=== PATIENT | female | born 1995 ===

== ENCOUNTER 2023-02-17 09:19 | Outpatient (AMB) | payer OTHER, SELFPAY ==
--- NOTE | 2023-02-17 09:24 | A.OFFPC_ITS ---
Vital Signs 02/17/23 09:25 Height 5 ft 3 in Weight 155 lb 4 oz BMI 27.5 BP 118/60 Blood Pressure Location Lt brachial Position Sitting Pulse 57 Pulse Source Pulse Oximeter Pulse Oximetry (%) 98 Oxygen Delivery Method Room Air Intake Visit Reasons: [employer] Environmental Permitting Specialist: Not Required per policy Accompanied by: Self / Same As Patient Allergies No Known Allergies Allergy (Verified 02/17/23 09:48) Medication List - Last Reconciled 02/17/23 by TOSHIA Andrews cetirizine (Zyrtec) 10 mg PO DAILY Tobacco use date assessed: 02/17/23 Dental Screening Dental Screen Date: 02/17/23 Did you have a dental visit in the last 12 months?: No Did you have a dental problem in the last 6 months where you did not have access to dental care?: No Was dental information given to patient?: Patient has dentist HPI HPI Comments History of Present Illness Details 27-year-old female new patient presents today for physical exam. Past medical history significant for eczema and seasonal allergies. Patient denies any chest pain, palpitations, shortness of breath and syncope. Patient is unaware when last Tdap vaccine was, patient states she will check with her mother who her transportation project manager was to obtain her previous immunization records. Patient requesting to have complete lab work done in also reports that at 1 point in time she has had a facial rash to bilateral cheeks that felt different than her eczema as well as having fatigue and various joint pains. Complete blood work ordered as well as CRP, ESR, rheumatoid factor an SEVERIANO to further exclude any autoimmune problems. Patient reports previously seen by [facility] but not has not seen them in a few years for Pap smear, referral entered. Eye exam: Recommended every couple years. Last MD was transportation project manager; unknown. PENDING SALE TO [facility] Medical History (Updated 02/17/23 @ 10:07 by TOSHIA Andrews) Facial rash Depression Anxiety History of wrist fracture Family History Mother Burns syndrome Father Heart attack Other Mental health problem Social History (Updated 02/17/23 @ 09:51 by TOSHIA Andrews) Housing: House Alcohol intake: current Alcohol intake frequency: a few times a month Patient Tobacco Use Status: Never used Tobacco Substance Use Type: Marijuana service: No Current occupational status: employed Cognitive needs: No Hearing needs: No Vision needs: Yes Female Reproductive History Menstrual Age of Menarche: 14 Date of last menstrual period: 02/14/23 control method: none Questionnaire PHQ-9 Over the last 2 weeks, how often have you been bothered by any of the following problems? 1. Little interest or pleasure in doing things: not at all 2. Feeling down, depressed, or hopeless: nearly every day 3. Trouble falling or staying asleep, or sleeping too much: not at all 4. Feeling tired or having little energy: not at all 5. Poor appetite or overeating: more than half the days 6. Feeling bad about yourself - or that you are a failure or have let yourself or your family down: more than half the days 7. Trouble concentrating on things, such as reading the newspaper or watching television: several days 8. Moving or speaking so slowly that other people could have noticed. Or the opposite - being so fidgety or restless that you have been moving around a lot more than usual: not at all 9. Thoughts that you would be better off or of hurting yourself in some way: several days Total score: 9 Source: Developed by Drs. Bean Marx, Alva Rob, Josh Charles and colleagues, with an educational ludivina from [employer]. Thrive Questionnaire Date Thrive assessed: 02/17/23 I am a: Patient What is your living situation today?: I have a steady place to live Within the past 12 months, did the food you bought not last and you didn't have the money to get more?: Never true Within the past 12 months, did you worry whether your food would run out before you got money to buy more?: Never true Do you have trouble paying for medicines?: No Do you have trouble getting transportation to medical appointments?: No Do you have trouble paying your heating and electricity bill?: No Do you have trouble taking care of your child, family member or friend?: No Do you have trouble with day-to-day activities such as bathing, preparing meals, shopping, managing finances, etc.?: No Are you currently unemployed and looking for a job?: No Are you interested in more education?: No Please select the resources that you would like help with: None AUDIT C Alcohol Use Questionnaire (AUDIT-C) 1. How often do you have a drink containing alcohol?: Never Total Score: 0 VICKIE-7 AMB Questionnaire VICKIE-7 Date VICKIE - 7 assessed: 02/17/23 Feeling nervous, anxious, or on edge: 1 = Several days Not being able to stop or control worryin = Not at all Worrying too much about different things: 0 = Not at all Trouble relaxin = Not at all Being so restless that it is hard to sit still: 1 = Several days Becoming easily annoyed or irritable: 1 = Several days Feeling afraid as if something awful might happen: 1 = Several days Total VICKIE-7 score (0-4 normal; 5-9 mild; 10-14 moderate; 15-21 severe): 4 Source: Developed by Drs. Bean Marx, Alva Rob, Josh Charles and colleagues, with an educational ludivina from [employer]. Review of Systems Const Denies chills, Denies fatigue, Denies fever(s) and Denies poor appetite Eyes Denies no additional complaints ENT Reports Normal hearing present Card Denies chest pain, Denies syncope, Denies rapid heart rate and Denies dyspnea Resp Denies cough and Denies dyspnea GI Denies change in stool character, Denies constipation, Denies diarrhea, Denies nausea and Denies vomiting Denies urinary frequency, Denies dysuria and Denies urinary urgency Neuro Reports Normal hearing present, Denies confusion and Denies syncope Psych Denies confusion Endo Denies fatigue Physical exam (Primary Care) Vital Signs: Last Vital Signs Pulse 57 02/17/23 09:25 BP 118/60 02/17/23 09:25 Pulse Ox 98 02/17/23 09:25 Oxygen Delivery Method Room Air 02/17/23 09:25 BMI result Body Mass Index 27.5 Tobacco/Smoking Status: Tobacco use Status Tobacco use date assessed 02/17/23 02/17/23 09:27 Patient Tobacco Use Status Never used Tobacco 02/17/23 09:51 PHQ-9: PHQ-9 Score PHQ-9: Total score 9 02/17/23 09:52 Thrive Assessment: Date of Thrive Assessment Date Thrive assessed 02/17/23 02/17/23 09:27 Const General: No confusion Orientation/consciousness: No confusion HENMT Head: Yes normocephalic and Yes atraumatic Ears: external ears normal and TM's normal bilaterally General nose exam: Normal external nose present and Normal nasal mucous membranes and turbinates present Face and sinus: Yes normal facial exam and Yes sinuses nontender Mouth: moist mucous membranes Throat: Yes tonsils normal Eyes Conjunctivae: conjunctivae normal Sclerae: sclerae normal Pupils: Equal, round and reactive pupils present and Pupils normal by confrontation EOM: EOMs intact bilaterally Direct Ophthalmoscopy: normal light reflex Neck Neck: Yes no lymphadenopathy and Yes supple Thyroid: Thyroid normal Chest Chest palpation & inspection: normal inspection of the chest Resp Effort & Inspection: normal respiratory effort Auscultation: clear to auscultation bilaterally, no crackles, no rhonchi and no wheezes Cardio Rate: regular rate Rhythm: regular rhythm Peripheral pulses: radial pulses present and dorsalis pedis present GI Inspection: Yes normal to inspection Palpation (GI): Soft to palpation, nontender and No hepatosplenomegaly present Auscultation: normoactive bowel sounds Skin General skin exam: no rashes or lesions noted Neuro General: No confusion Cranial nerves: Yes Equal, round and reactive pupils present and Yes Normal hearing present Cognition (Neuro): normal cognition Gait exam (Neuro): Normal gait present Motor exam (neuro): 5/5 motor strength present throughout Deep tendon reflexes (DTR's): Right brachioradialis reflex intensity grade: 2+, Left brachioradialis reflex intensity grade: 2+, Right patellar reflex intensity grade: 2+ and Left patellar reflex intensity grade: 2+ Extrem General: No edema Assessment and Plan Assessment & Plan (1) Fatigue: Code(s): R53.83 - Other fatigue Plan: Complete blood work ordered. (2) Vitamin D deficiency: Code(s): E55.9 - Vitamin D deficiency, unspecified Plan: Vitamin-D level ordered, patient reports past history of vitamin-D deficiency. (3) Joint pain: Code(s): M25.50 - Pain in unspecified joint Plan: ESR, CRP, rheumatoid factor and SEVERIANO headed to blood work since patient states she has various joint pains at times and reported a rash to bilateral cheeks months ago that felt different than her eczema to rule out any autoimmune disorders. Plan Keep scheduled follow-up 1 year follow-up sooner. Orders: Orders Comprehensive Met. Panel Today R53.83 - Other fatigue SEVERIANO Reflex Titer and Pattern Today R21 - Rash and other nonspecific skin eruption Rheumatoid Factor Today M25.50 - Pain in unspecified joint Erythrocyte Sedimentation Rate Today M25.50 - Pain in unspecified joint Vitamin D 25-OH Total Today E55.9 - Vitamin D deficiency, unspecified Complete Blood Count Auto Diff Today R53.83 - Other fatigue TSH reflex Free T4 Today R53.83 - Other fatigue CRP High Sensitivity Today M25.50 - Pain in unspecified joint, R53.83 - Other fatigue Referrals [facility] Referral Z12.4 - Encounter for screening for malignant neoplasm of cervix Coding Level of Care Code New Pt Prev Care 18-39yr([id number] Diagnoses Fatigue R53.83 Vitamin D deficiency E55.9 Joint pain M25.50
[2023-02-17 09:25] VITALS: BP 118/60; PULSE 57; O2SAT 98; BMI 27.5
== END 2023-02-17 10:07 | disposition home or self-care (01) ==
PROVIDERS: Visit Provider Nurse Practitioner Family
DX: Z00.00 Encounter for general adult medical examination without abnormal findings (principal); R53.83 Other fatigue; E55.9 Vitamin D deficiency, unspecified; M25.50 Pain in unspecified joint
CPT/HCPCS: 99385

== ENCOUNTER 2023-02-19 07:40 | Outpatient (REF) | payer OTHER, SELFPAY ==
[2023-02-19 10:58] LABS: MANUAL DIFF FLAG NO
[2023-02-19 11:06] LABS: Basophils Percent Auto 0.4 % (0-2); Eosinophils Absolute Auto 0.1 X10*3/uL (0.0-0.4); Eosinophils Percent Auto 1.9 % (0-4); Hematocrit 38.5 % (37.0-47.0); Hemoglobin 13.1 g/dl (12.0-16.0); Imm Gran Abs Auto 0.01 X10*3/uL (0.00-0.03); Imm Gran Pct Auto 0.1 % (0.0-0.4); Lymphocytes Absolute Auto 2.8 X10*3/uL (1.2-4.9); Lymphocytes Percent Auto 41.9 % (20-40); Mean Corpuscular Hemoglobin 31.8 pg (27.0-33.0); Mean Corpuscular Volume 93.4 fL (80.0-98.0); Mean Platelet Volume 10.6 fL (9.4-12.3); Monocytes Absolute Auto 0.5 X10*3/uL (0.1-1.2); Monocytes Percent Auto 7.8 % (2-11); Neutrophils Absolute Auto 3.2 x10*3/uL (2.0-8.3); Neutrophils Percent Auto 47.9 % (45-73); Platelet Count 241 X10*3/uL (160-400); Red Blood Count 4.12 X10*6/uL (4.20-5.50); Red Cell Distribution Width 11.7 % (11.0-16.0); White Blood Count 6.8 X10*3/uL (4.8-10.8)
[2023-02-19 11:29] LABS: Rheumatoid Factor < 13.0 IU/mL (<15.0)
[2023-02-19 11:42] LABS: Alanine Aminotransferase 21 U/L (0-31); Albumin Level 4.4 g/dL (3.5-5.0); Alkaline Phosphatase 61 U/L (39-117); Anion Gap 13 (12-20); Aspartate Amino Transferase 22 U/L (5-31); Bilirubin Total 0.3 mg/dL (0.0-1.0); Blood Urea Nitrogen 13 mg/dL (9-16); Calcium 9.7 mg/dL (8.4-10.2); Carbon Dioxide 26 mmol/L (22-29); Chloride 106 mmol/L (96-108); Estimated Glomerular Filt Rate > 60; Glucose Random 78 mg/dL (60-115); Potassium 3.8 mmol/L (3.3-5.1); Sodium 141 mmol/L (135-145); Total Protein 7.6 g/dL (6.5-8.0)
[2023-02-19 11:46] LABS: Erythrocyte Sedimentation Rate 5 MM/HR (0-20)
[2023-02-19 11:48] LABS: Vitamin D 25-OH Total 65.7 ng/mL (>30)
[2023-02-23 11:35] LABS: Anti Nuclear Antibody Screen NEGATIVE (NEGATIVE)
== END 2023-02-19 07:41 | disposition home or self-care (01) ==
LOC: HO.10HDL 07:40
PROVIDERS: Visit Provider Nurse Practitioner Family
DX: E55.9 Vitamin D deficiency, unspecified (principal); M25.50 Pain in unspecified joint; R21 Rash and other nonspecific skin eruption; R53.83 Other fatigue
CPT/HCPCS: 36415; 80053; 82306; 84443; 85025; 85652; 86038; 86141; 86431

== ENCOUNTER 2023-05-03 08:00 | Outpatient (AMB) | payer OTHER, SELFPAY ==
[2023-05-03 08:05] VITALS: BP 118/72; PULSE 79; TEMP 36.7; O2SAT 99; BMI 27.6
--- NOTE | 2023-05-03 08:05 | AM.OFFWIN_ITS ---
Intake Vital Signs 05/03/23 08:05 Height 5 ft 3 in Weight 156 lb BMI 27.6 BP 118/72 Blood Pressure Location Lt brachial Position Sitting Pulse 79 Pulse Source Pulse Oximeter Temp 98.1 F Temp Source Temporal Artery Scan Pulse Oximetry (%) 99 Intake Visit Reasons: EST/sore throat (masked lobby) Intake Note: pt is here for c/o sore throat Patient Tobacco Use Status: Never used Tobacco Allergies No Known Allergies Allergy (Verified 05/03/23 08:19) Medication List - Last Reconciled 05/03/23 by Jamal Douglas MD cetirizine (Zyrtec) 10 mg PO DAILY Do you need a note to return to daycare/school/sports/work: Yes HPI EST/sore throat (masked lobby) HPI Details Patient presents for a sick visit. Reporting symptoms of sinus congestion, sore throat and difficulty swallowing. Low-grade fever. No family member is sick. No recent travel. Patient reports symptoms of malaise and fatigue. [facility] Medical History (Updated 02/17/23 @ 10:07 by TOSHIA Andrews) Facial rash Depression Anxiety History of wrist fracture Family History Mother Burns syndrome Father Heart attack Other Mental health problem (Updated 02/17/23 @ 09:51 by TOSHIA Andrews) Housing: House Alcohol intake: current Alcohol intake frequency: a few times a month Patient Tobacco Use Status: Never used Tobacco Substance Use Type: Marijuana service: No Current occupational status: employed Cognitive needs: No Hearing needs: No Vision needs: Yes Female Reproductive History Menstrual Age of Menarche: 14 Physical Exam Vital Signs: Last Vital Signs Temp 98.1 F 05/03/23 08:05 Pulse 79 05/03/23 08:05 BP 118/72 05/03/23 08:05 Pulse Ox 99 05/03/23 08:05 BMI result Body Mass Index 27.6 Const General: cooperative and healthy appearing Nutritional Appearance: well nourished Orientation/consciousness: patient oriented x3 Limitations: no limitations HEENT Head: Yes normal to inspection Eyes General: appearance normal, both eyes and all related structures Neck Neck: Yes normal visual inspection Chest Chest palpation & inspection: normal palpation of entire chest wall Resp Effort & Inspection: normal respiratory effort Neuro General: patient oriented x3 Assessment & Plan Assessment & Plan (1) Upper respiratory tract infection: Code(s): J06.9 - Acute upper respiratory infection, unspecified Plan: Antibiotics ordered. Increase fluid intake. Tylenol for aches and pains. If symptoms worsen, follow-up here for a recheck. Coding Level of Care Code Est Pt Level 3 (40083) Diagnoses Upper respiratory tract infection J06.9
== END 2023-05-03 08:26 | disposition home or self-care (01) ==
PROVIDERS: PCP Nurse Practitioner Family; Visit Provider Internal Medicine
DX: J06.9 Acute upper respiratory infection, unspecified (principal); J02.9 Acute pharyngitis, unspecified
CPT/HCPCS: 87880; 99213

== ENCOUNTER 2023-06-23 07:01 | Emergency (ER) | payer OTHER, SELFPAY ==
[2023-06-23 07:10] VITALS: BP 112/79; PULSE 72; RESP 20; TEMP 36.5; O2SAT 98; BMI 28.9
[2023-06-23] MEDS: Ondansetron ODT 4 MG TAB.RAPDIS TRANSLINGU (07:18)
[2023-06-23 07:46] LABS: MANUAL DIFF FLAG NO
[2023-06-23 07:49] LABS: Appearance Urine Clear; Color Urine Yellow; Glucose Urine UA Negative (Negative); Leukocyte Esterase Urine Negative (Negative); Nitrite Urine Negative (Negative); PH >= 9.0 (5.0-9.0); Specific Gravity - Urine 1.025 (1.005-1.025); UMIC TRIGGER UACC YES; Urine Blood Negative (Negative); Urine Ketones Trace mg/dL (Negative); Urine Protein 30 (1+) mg/dL (Neg-Trace)
[2023-06-23 07:50] LABS: UPreg QC Valid YES; Urine Pregnancy NEGATIVE (NEGATIVE)
[2023-06-23 08:01] LABS: Anion Gap 14 (12-20); Blood Urea Nitrogen 13 mg/dL (9-16); Calcium 9.4 mg/dL (8.4-10.2); Carbon Dioxide 22 mmol/L (22-29); Chloride 108 mmol/L (96-108); Creatinine Clr Calc Pharmacy 85.6; Estimated Glomerular Filt Rate > 60; Glucose Random 118 mg/dL (60-115); Potassium 3.7 mmol/L (3.3-5.1); Sodium 140 mmol/L (135-145)
[2023-06-23 08:06] LABS: Bacteria Urine 1+ (None Seen); Hyaline Casts Urine 0-2 /LPF (0-2); RBC Urine 0-2 /HPF (0-2); WBC Urine 0-5 /HPF (0-5)
[2023-06-23 08:14] LABS: Basophils Percent Auto 0.4 % (0-2); Hematocrit 39.5 % (37.0-47.0); Hemoglobin 13.9 g/dl (12.0-16.0); Imm Gran Abs Auto 0.02 X10*3/uL (0.00-0.03); Imm Gran Pct Auto 0.2 % (0.0-0.4); Lymphocytes Absolute Auto 0.9 X10*3/uL (1.2-4.9); Lymphocytes Percent Auto 10.5 % (20-40); Mean Corpuscular HGB Conc 35.2 g/dl (31.0-35.0); Mean Platelet Volume 10.5 fL (9.4-12.3); Monocytes Absolute Auto 0.3 X10*3/uL (0.1-1.2); Neutrophils Absolute Auto 7.1 x10*3/uL (2.0-8.3); Neutrophils Percent Auto 85.9 % (45-73); Platelet Count 221 X10*3/uL (160-400); Red Blood Count 4.34 X10*6/uL (4.20-5.50); White Blood Count 8.2 X10*3/uL (4.8-10.8)
--- NOTE | 2023-06-23 10:13 | ED.NAVMDI ---
HPI - Nausea/Vomiting/Diarrhea General Chief complaint: Nausea/Vomiting/Diarrhea Stated complaint: Vomiting Flu Symptoms Time Seen by Provider: 06/23/23 10:06 Source: patient Mode of arrival: ambulatory Limitations: no limitations History of Present Illness HPI Narrative: 28 yo female with no sig PMH no prior abdominal surgeries here with c/o vomiting all night since midnight - no travel, no known sick contacts or exposures. She might have eaten a bad egg at home. No diarrhea. She does have untreated GERD. MD elicited complaint: nausea and vomiting Onset (ago): hour(s) (several) Description of vomiting: food contents and watery Associated nausea: Yes Associated abdominal pain: No Severity: moderate Exacerbating factors: eating Relieving factors: none Context: other Associated symptoms: loss of appetite, malaise and nausea/vomiting Treatment prior to arrival: other (tried mom compazine without relief) Related Data Home Medications Medication Instructions Recorded Confirmed cetirizine 10 mg capsule (Zyrtec) 10 mg PO DAILY 02/17/23 02/17/23 Previous Rx's Medication Instructions Recorded azithromycin 250 mg tablet See Rx Instructions PO .COMPLEX #6 05/03/23 tabs famotidine 20 mg tablet (Pepcid) 20 mg PO DAILY PRN abdominal 06/23/23 discomfort #30 tabs ondansetron 4 mg disintegrating 4 mg PO Q8H PRN nausea and 06/23/23 tablet vomiting #20 tabs ondansetron 8 mg disintegrating 8 mg PO Q12H PRN nausea and 06/23/23 tablet vomiting 3 days #6 tabs Allergies Allergy/AdvReac Type Severity Reaction Status Date / Time No Known Allergies Allergy Verified 06/23/23 07:15 Review of Systems Review of Systems: Constitutional : No Weight loss, No Fever, No Chills ENT/Mouth : No sore throat, No Rhinorrhea Eyes: No Swelling, No Redness Cardiovascular : No Chest Pain, No SOB, NoEdema Respiratory : No Cough, No Sputum, No Wheezing Gastrointestinal : Positive Nausea, Positive Vomiting, no Diarrhea, no abdominal Pain, No Hematochezia, No Melena Genitourinary : No Dysuria, No Urinary Frequency, No Hematuria, No Urgency Musculoskeletal : No joint pain, No Myalgias, No Joint Swelling Skin : No Skin Lesions, No rash Neuro : No Weakness, No Numbness, No Dizziness, No Headache Psych : No Anxiety/Panic, No Depression All other systems reviewed and are negative. Gastrointestinal: Gastrointestinal: Reports nausea PMFSH Past Medical History Attestation statement: The following information was validated with the patient. Source: old records reviewed Onset Date is defined in the Problem List Problems that require an onset date and time if occurred within 24 hrs of arrival to the ED Aortic Dissection and Rupture; Neurologic impairment; Cardiopulmonary Arrest; Endotracheal Intubation; Insertion or Replacement of Mechanical Circulatory Assist Device Medical History Facial rash Depression Anxiety History of wrist fracture Family History Family History Mother Burns syndrome Father Heart attack Other Mental health problem Social History Social History Housing: House Alcohol intake: current Alcohol intake frequency: a few times a month Patient Tobacco Use Status: Never used Tobacco Smoked in Last 30 Days: No Use of substances other than those prescribed or required for medical reasons: Yes Substance Use Type: Marijuana Advance Directives: No Patient : No service: No Current occupational status: employed Cognitive needs: No Hearing needs: No Vision needs: Yes Physical Exam Vital Signs: Vital Signs: Last Vital Signs Temp 98.0 F 06/23/23 10:49 Pulse 69 06/23/23 10:49 Resp 16 06/23/23 10:49 BP 114/65 06/23/23 10:49 Pulse Ox 100 06/23/23 10:49 O2 Del Method Room Air 06/23/23 10:49 BMI result Body Mass Index 28.9 Appearance: Alert. Oriented X3. No acute distress. Eyes: Pupils equal, round and reactive to light. ENT: Pharynx mildly dry MM Neck: Normal inspection. Neck supple. CVS: Normal heart rate and rhythm. Pulses normal. Respiratory: No respiratory distress. Breath sounds normal. Abdomen: Soft and nontender. Skin: Skin warm and dry. Normal skin color. Normal skin turgor. Extremities: No lower extremity edema. No calf ttp Neuro: Oriented X 3. No motor deficit. No sensory deficit. Medications Administered Discontinued Medications Generic Name Dose Route Start Last Admin Trade Name Freq PRN Reason Stop Dose Admin Diphenhydramine HCl 25 mg 06/23/23 10:10 06/23/23 10:33 Diphenhydramine Hcl 50 Mg/Ml Vial IVPUSH 06/23/23 10:11 25 mg ONCE ONE Administration Famotidine 20 mg 06/23/23 10:10 06/23/23 10:33 Famotidine/Pf 20 Mg/2 Ml Vial IVPUSH 06/23/23 10:11 20 mg ONCE ONE Administration Sodium Chloride 1,000 mls @ 999 mls/hr 06/23/23 10:15 06/23/23 10:32 Ns IV 06/23/23 11:15 999 mls/hr .Q1H1M SOREN Administration Sodium Chloride 1,000 mls @ 999 mls/hr 06/23/23 10:15 06/23/23 10:32 Ns IV 06/23/23 11:15 999 mls/hr .Q1H1M SOREN Administration Metoclopramide HCl 10 mg 06/23/23 10:10 06/23/23 10:33 Metoclopramide Hcl 10 Mg/2 Ml Vial IVPUSH 06/23/23 10:11 10 mg ONCE ONE Administration Ondansetron HCl 4 mg 06/23/23 07:16 06/23/23 07:18 Ondansetron Odt 4 Mg Tab.Rapdis TRANSLINGU 06/23/23 07:17 4 mg ONCE ONE Administration Medical Decision Making Medical Decision Making [facility] Narrative: 28 yo female with PMH of anxiety here with abrupt onset N/V no diarrhea no fevers, no known exposure although possible bad egg she ate at home. She has no abdominal pain to palpation. At this time will obtain basic, labs, viral panel, UA/UPT and hydrate with supportive medications. Doubt cholecystitis or appendicits given lack of pain. Differential Diagnosis Differential Diagnoses: The differential diagnosis associated with the presentation includes food toxicity, viral syndrome, GERD Admission/Observation Consideration of admission/observation: Escalation of care including admission/observation considered able to tolerate PO stable for DC Lab Data [facility] Lab Attestation statement: I reviewed the patient's lab results. 06/23/23 07:38 06/23/23 07:38 Labs: Lab Results 06/23/23 06/23/23 Range/Units 07:38 10:15 WBC 8.2 (4.8-10.8) X10*3/uL RBC 4.34 (4.20-5.50) X10*6/uL Hgb 13.9 (12.0-16.0) g/dl Hct 39.5 (37.0-47.0) % MCV 91.0 (80.0-98.0) fL MCH 32.0 (27.0-33.0) pg MCHC 35.2 H (31.0-35.0) g/dl RDW 12.0 (11.0-16.0) % Plt Count 221 (160-400) X10*3/uL MPV 10.5 (9.4-12.3) fL Immature Gran % (Auto) 0.2 (0.0-0.4) % Neut % (Auto) 85.9 H (45-73) % Lymph % (Auto) 10.5 L (20-40) % Archer % (Auto) 3.0 (2-11) % Eos % (Auto) 0.0 (0-4) % Baso % (Auto) 0.4 (0-2) % Lymph # (Auto) 0.9 L (1.2-4.9) X10*3/uL Archer # (Auto) 0.3 (0.1-1.2) X10*3/uL Eos # (Auto) 0.0 (0.0-0.4) X10*3/uL Baso # (Auto) 0.0 (0.0-0.2) X10*3/uL Abs Immat Gran (auto) 0.02 (0.00-0.03) X10*3/uL Absolute Neuts (auto) 7.1 (2.0-8.3) x10*3/uL Absolute Nucleated RBC 0.000 (0.0-0.012) X10*3/uL Nucleated RBC % (auto) 0.0 (0.0-0.2) /100WBC Sodium 140 (135-145) mmol/L Potassium 3.7 (3.3-5.1) mmol/L Chloride 108 (96-108) mmol/L Carbon Dioxide 22 (22-29) mmol/L Anion Gap 14 (12-20) BUN 13 (9-16) mg/dL Creatinine 0.96 (0.5-1.4) mg/dL Estim Creat Clear Calc 85.6 Estimated GFR > 60 Random Glucose 118 H (60-115) mg/dL Calcium 9.4 (8.4-10.2) mg/dL Total Bilirubin 0.5 (0.0-1.0) mg/dL Direct Bilirubin 0.2 (0.0-0.5) mg/dL AST 20 (5-31) U/L ALT 20 (0-31) U/L Alkaline Phosphatase 55 (39-117) U/L Total Protein 7.8 (6.5-8.0) g/dL Albumin 4.4 (3.5-5.0) g/dL Lipase 16 (8-78) U/L Urine Color Yellow Urine Appearance Clear Urine pH >= 9.0 (5.0-9.0) Ur Specific Delight 1.025 (1.005-1.025) Urine Protein 30 (1+) H (Neg-Trace) mg/dL Urine Glucose (UA) Negative (Negative) mg/dL Urine Ketones Trace (Negative) mg/dL Urine Blood Negative (Negative) Urine Nitrite Negative (Negative) Ur Leukocyte Esterase Negative (Negative) Urine RBC 0-2 (0-2) /HPF Urine WBC 0-5 (0-5) /HPF Ur Squamous Epith Cells 6-10 (0-2) /HPF Urine Bacteria 1+ (None Seen) Hyaline Casts 0-2 (0-2) /LPF Urine Test NEGATIVE (NEGATIVE) COVID-19 (ELLI) Negative (Negative) COVID-19 Clin Com See Note Influenza Type A (WILDA) Negative (Negative) Influenza Type B (WILDA) Negative (Negative) Influenza A & B Note See Note External Record Review External record reviewed: Inpatient record Prescription Management I considered prescription management with: Other Discharge Plan Discharge Clinical Impression: Nausea and vomiting Qualifiers: Vomiting type: unspecified Qualified Code(s): R11.2 - Nausea with vomiting, unspecified Patient Disposition: Home, Self-Care Instructions: Acute Nausea and Vomiting (ED) Additional Instructions: advance diet slowly as tolerated over 48 hours. drink plenty of fluids and stay hydrated. return for worsening pain, diarrhea, fevers, inability to eat or drink or any other concerns. take the pepcid as needed for acid reflux Prescriptions: New famotidine [Pepcid] 20 mg tablet 20 mg PO DAILY PRN (Reason: abdominal discomfort) Qty: 30 1RF ondansetron 4 mg tablet,disintegrating 4 mg PO Q8H PRN (Reason: nausea and vomiting) Qty: 20 0RF No Action azithromycin 250 mg tablet See Rx Instructions PO .COMPLEX Qty: 6 0RF Rx Instructions: take 500 mg today (day 1), then 250 mg for 4 days (days 2-5) PO ondansetron 8 mg tablet,disintegrating 8 mg PO Q12H PRN (Reason: nausea and vomiting) 3 Days Qty: 6 0RF Zyrtec 10 mg capsule 10 mg PO DAILY
[2023-06-23 10:31] LABS: Alanine Aminotransferase 20 U/L (0-31); Albumin Level 4.4 g/dL (3.5-5.0); Alkaline Phosphatase 55 U/L (39-117); Aspartate Amino Transferase 20 U/L (5-31); Bilirubin Direct 0.2 mg/dL (0.0-0.5); Bilirubin Total 0.5 mg/dL (0.0-1.0); Lipase 16 U/L (8-78); Total Protein 7.8 g/dL (6.5-8.0)
[2023-06-23] MEDS: 0.9 % Sodium Chloride 1,000 ML 999 ML IV ×2 (10:32)
[2023-06-23] MEDS: Metoclopramide HCl 10 MG/2 ML VIAL IVPUSH (10:33)
[2023-06-23] MEDS: diphenhydrAMINE HCL 50 MG/ML VIAL 25 MG IVPUSH (10:33)
[2023-06-23] MEDS: Famotidine/PF 20 MG/2 ML VIAL IVPUSH (10:33)
[2023-06-23 10:42] LABS: COVID-19 Test Negative (Negative); IDNOW Serial# 152EDE1D; IDNOW Serial# 9DB6401D; Influenza A Negative (Negative); Influenza B2 Negative (Negative)
[2023-06-23 10:49] VITALS: BP 114/65; PULSE 69; RESP 16; TEMP 36.7; O2SAT 100
== END 2023-06-23 12:27 | disposition home or self-care (01) ==
PROVIDERS: Physician Assistant Medical; Emergency Provider Emergency Medicine; PCP Nurse Practitioner Family
DX: R11.2 Nausea with vomiting, unspecified (principal); Z11.52 Encounter for screening for COVID-19
CPT/HCPCS: 36415; 80048; 80076; 81001; 81025; 83690; 85025; 87502; 87635; 96361; 96374; 96375; 99284; J1200; J2765

== ENCOUNTER 2024-02-21 09:34 | Outpatient (REF) | payer OTHER, SELFPAY ==
--- NOTE | ~2024-02-21 | XR_ITS ---
EXAMINATION: XR THORACIC SPINE CLINICAL INFORMATION: Dorsalis COMPARISON: None available. TECHNIQUE: Frontal and lateral views of the thoracic spine were obtained. FINDINGS: There is no fracture or bone destruction seen and the vertebral alignment is normal. There is no disc space narrowing. There is no abnormality of the paraspinal soft tissues. Minimal scoliosis is noted. XR/XR thoracic spine 3V IMPRESSION: Minimal scoliosis. Normal otherwise. Electronically signed by: Jair Awan MD 03/19/2024 06:50 PM EDT RP
[2024-02-21 12:15] LABS: MANUAL DIFF FLAG NO
[2024-02-21 12:54] LABS: Basophils Percent Auto 0.4 % (0-2); Eosinophils Absolute Auto 0.1 X10*3/uL (0.0-0.4); Eosinophils Percent Auto 1.2 % (0-4); Hematocrit 38.6 % (37.0-47.0); Hemoglobin 13.3 g/dl (12.0-16.0); Imm Gran Abs Auto 0.01 X10*3/uL (0.00-0.03); Imm Gran Pct Auto 0.2 % (0.0-0.4); Lymphocytes Absolute Auto 1.9 X10*3/uL (1.2-4.9); Lymphocytes Percent Auto 33.3 % (20-40); Mean Corpuscular HGB Conc 34.5 g/dl (31.0-35.0); Mean Corpuscular Hemoglobin 32.2 pg (27.0-33.0); Mean Corpuscular Volume 93.5 fL (80.0-98.0); Mean Platelet Volume 10.3 fL (9.4-12.3); Monocytes Absolute Auto 0.4 X10*3/uL (0.1-1.2); Neutrophils Absolute Auto 3.3 x10*3/uL (2.0-8.3); Neutrophils Percent Auto 57.9 % (45-73); Platelet Count 241 X10*3/uL (160-400); Red Blood Count 4.13 X10*6/uL (4.20-5.50); Red Cell Distribution Width 11.8 % (11.0-16.0); White Blood Count 5.7 X10*3/uL (4.8-10.8)
[2024-02-21 13:29] LABS: Alanine Aminotransferase 21 U/L (0-31); Albumin Level 4.4 g/dL (3.5-5.0); Alkaline Phosphatase 62 U/L (39-117); Anion Gap 14 (12-20); Aspartate Amino Transferase 22 U/L (5-31); Bilirubin Total 0.4 mg/dL (0.0-1.0); Blood Urea Nitrogen 9 mg/dL (9-16); Calcium 9.7 mg/dL (8.4-10.2); Carbon Dioxide 26 mmol/L (22-29); Chloride 105 mmol/L (96-108); Estimated Glomerular Filt Rate > 60; Glucose Random 130 mg/dL (60-115); Potassium 3.8 mmol/L (3.3-5.1); Sodium 141 mmol/L (135-145); Total Protein 7.9 g/dL (6.5-8.0)
[2024-02-21 13:51] LABS: Free T4 (Free Thyroxine) 0.88 ng/dL (0.71-1.85); TSH reflex Free T4 1.41 uIU/mL (0.32-4.0)
[2024-02-21 14:01] LABS: Vitamin B12 569 pg/mL (200-900)
[2024-02-21 14:46] LABS: Estimated Average Glucose 100 mg/dL; Hemoglobin A1c % 5.1 % (<6.0)
[2024-02-26 18:18] LABS: Vitamin D 25-OH, D2 <4 ng/mL; Vitamin D 25-OH, D3 30 ng/mL; Vitamin D 25-OH, Total 30 ng/mL (30-100)
== END 2024-02-21 09:35 | disposition home or self-care (01) ==
LOC: HO.XRAY 09:34
DX: Z00.01 Encounter for general adult medical examination with abnormal findings (principal); M54.9 Dorsalgia, unspecified; K21.9 Gastro-esophageal reflux disease without esophagitis; L30.9 Dermatitis, unspecified; F41.9 Anxiety disorder, unspecified; Z79.899 Other long term (current) drug therapy
CPT/HCPCS: 36415; 72072; 80053; 82306; 82607; 82746; 83036; 84439; 84443; 85025; 96127; 99202; 99385

== ENCOUNTER 2024-02-21 09:34 | Outpatient (AMB) | payer OTHER, SELFPAY ==
[2024-02-21 09:35] VITALS: BP 126/70; PULSE 70; O2SAT 97; BMI 26.9
--- NOTE | 2024-02-21 09:35 | A.OFFPC_ITS ---
Vital Signs 02/21/24 09:35 Height 5 ft 3 in Weight 152 lb BMI 26.9 BP 126/70 Blood Pressure Location Lt brachial Position Sitting Pulse 70 Pulse Source Pulse Oximeter Pulse Oximetry (%) 97 Oxygen Delivery Method Room Air Intake Visit Reasons: PE First Coat Operator Required: No Accompanied by: Self / Same As Patient Allergies No Known Allergies Allergy (Verified 02/21/24 09:48) Medication List - Last Reconciled 02/21/24 by Patricia Medel PA-C cetirizine (Zyrtec) 10 mg PO DAILY famotidine (Pepcid) 20 mg PO DAILY PRN ondansetron 4 mg PO Q8H PRN ondansetron 8 mg PO Q12H PRN 3 days Tobacco use date assessed: 02/21/24 Dental Screening Dental Screen Date: 02/21/24 Did you have a dental visit in the last 12 months?: No Did you have a dental problem in the last 6 months where you did not have access to dental care?: No Was dental information given to patient?: Patient has dentist HPI PE HPI Details 28 year old female with past history of eczema last seen by Nurse practitioner coming in for annual exam. Patient has made an appointment with Gynecology but has not been seen yet. She is interested in control however not the pill as she is not reliable in taking medications every day. She does have a history of anxiety and depression and regularly sees a counselor weekly and is not interested in medications. History of eczema and uses steroid creams as needed. She also complains of reflux symptoms primarily in the morning. [facility] Medical History (Updated 02/21/24 @ 12:13 by Patricia Medel PA-C) Facial rash Depression Anxiety History of wrist fracture Family History Mother Burns syndrome Father Heart attack Other Mental health problem Social History Housing: House Alcohol intake: current Alcohol intake frequency: a few times a month Patient Tobacco Use Status: Never used Tobacco Tobacco use type: Cigarette e-Cigarette/Vaping Use: Former Use Substance Use Type: Marijuana service: No Current occupational status: employed Cognitive needs: No Hearing needs: No Vision needs: Yes Female Reproductive History Menstrual Age of Menarche: 14 control method: none History of abnormal pap smear: No Questionnaire PHQ-9 Over the last 2 weeks, how often have you been bothered by any of the following problems? 1. Little interest or pleasure in doing things: not at all 2. Feeling down, depressed, or hopeless: nearly every day 3. Trouble falling or staying asleep, or sleeping too much: not at all 4. Feeling tired or having little energy: not at all 5. Poor appetite or overeating: more than half the days 6. Feeling bad about yourself - or that you are a failure or have let yourself or your family down: more than half the days 7. Trouble concentrating on things, such as reading the newspaper or watching television: several days 8. Moving or speaking so slowly that other people could have noticed. Or the opposite - being so fidgety or restless that you have been moving around a lot more than usual: not at all 9. Thoughts that you would be better off or of hurting yourself in some way: several days Total score: 9 Depression Screening Interpretation: Positive Depression Screening Follow-up: Existing condition and In treatment Depression Screening Done: Yes 63982 - PHQ-9 Billing: Yes Source: Developed by Drs. Bean Marx, Alva Rob, Josh Charles and colleagues, with an educational ludivina from [employer]. Thrive Questionnaire Date Thrive assessed: 02/17/23 I am a: Patient What is your living situation today?: I have a steady place to live Within the past 12 months, did the food you bought not last and you didn't have the money to get more?: Never true Within the past 12 months, did you worry whether your food would run out before you got money to buy more?: Never true Do you have trouble paying for medicines?: No Do you have trouble getting transportation to medical appointments?: No Do you have trouble paying your heating and electricity bill?: No Do you have trouble taking care of your child, family member or friend?: No Do you have trouble with day-to-day activities such as bathing, preparing meals, shopping, managing finances, etc.?: No Are you currently unemployed and looking for a job?: No Are you interested in more education?: No Please select the resources that you would like help with: None THRIVE Score: 0 AUDIT C Alcohol Use Questionnaire (AUDIT-C) 1. How often do you have a drink containing alcohol?: Never Total Score: 0 VICKIE-7 AMB Questionnaire VICKIE-7 Date VICKIE - 7 assessed: 02/21/24 Feeling nervous, anxious, or on edge: 1 = Several days Not being able to stop or control worryin = Not at all Worrying too much about different things: 0 = Not at all Trouble relaxin = Not at all Being so restless that it is hard to sit still: 1 = Several days Becoming easily annoyed or irritable: 1 = Several days Feeling afraid as if something awful might happen: 1 = Several days Total VICKIE-7 score (0-4 normal; 5-9 mild; 10-14 moderate; 15-21 severe): 4 Source: Developed by Drs. Bean Marx, Alva Rob, Josh Charles and colleagues, with an educational ludivina from [employer]. VICKIE-7 Assessment Billing VICKIE-7 Assessment Tool: VICKIE-7 Assessment 59633 Review of Systems Const Denies body aches, Denies fatigue, Denies fever(s), Denies frequent falls, Denies headache(s) and Denies weakness Eyes Reports no additional complaints and Denies change in vision ENT Denies dysphagia, Denies dizziness, Denies facial pain, Denies headache(s), Denies nasal congestion and Denies odynophagia Card Denies chest pain, Denies syncope, Denies irregular heart rhythm, Denies leg edema, Denies lightheadedness and Denies dyspnea Resp Denies cough and Denies dyspnea GI Denies abdominal pain, Denies constipation, Denies dysphagia, Reports dyspepsia, Denies heartburn, Denies diarrhea, Reports nausea, Denies odynophagia and Denies vomiting Denies urinary frequency, Denies dysuria, Denies urinary hesitancy and Denies urinary urgency Musc Denies back pain and Denies myalgias Skin/Breast Reports as per HPI Neuro Denies dizziness, Denies syncope, Denies frequent falls, Denies headache(s) and Denies weakness Psych Reports no additional complaints Endo Denies fatigue Physical exam (Primary Care) Vital Signs: Last Vital Signs Pulse 70 02/21/24 09:35 BP 126/70 02/21/24 09:35 Pulse Ox 97 02/21/24 09:35 Oxygen Delivery Method Room Air 02/21/24 09:35 BMI result Body Mass Index 26.9 Tobacco/Smoking Status: Tobacco use Status Tobacco use date assessed 02/21/24 02/21/24 09:38 Patient Tobacco Use Status Never used Tobacco 02/21/24 09:35 Tobacco use type Cigarette 02/21/24 09:38 e-Cigarette/Vaping Use Former Use 02/21/24 09:43 PHQ-9: PHQ-9 Score PHQ-9: Total score 9 02/21/24 12:15 Depression Screening Interpretation: Positive Depression Screening Follow-up: Existing condition and In treatment Thrive Assessment: Date of Thrive Assessment Date Thrive assessed 02/17/23 02/21/24 09:35 Const General: cooperative, healthy appearing, comfortable and no acute distress Orientation/consciousness: patient oriented x3 HENMT Head: Yes normocephalic Ears: hearing grossly normal bilaterally, external ears normal, TM's normal bilaterally and EAC's normal General nose exam: Normal external nose present Face and sinus: Yes normal facial exam and Yes sinuses nontender Mouth: Normal oral and palatal mucosa present and tongue normal Throat: Yes posterior oropharynx normal Eyes General: appearance normal, both eyes and all related structures Conjunctivae: conjunctivae normal Pupils: Equal, round and reactive pupils present EOM: EOMs intact bilaterally and No Nystagmus present Neck Neck: Yes normal visual inspection, Yes full ROM and Yes no lymphadenopathy Chest Chest palpation & inspection: normal inspection of the chest Resp Effort & Inspection: normal respiratory effort Auscultation: clear to auscultation bilaterally, no crackles, no rales, no rhonchi, no wheezes and breath sounds present Cardio Rate: regular rate Rhythm: regular rhythm Peripheral pulses: radial pulses present and dorsalis pedis present GI Inspection: Yes normal to inspection and No Abdominal wall edema Palpation (GI): Soft to palpation, not firm and nontender Auscultation: normal bowel sounds Rectal Exam - Female: deferred General: Yes no CVA tenderness Back/Spine/Pelvis Other: Pain to palpation of thoracic spine Back: no CVA tenderness Skin General skin exam: no rashes or lesions noted Neuro General: patient oriented x3 Cranial nerves: Yes Equal, round and reactive pupils present, Yes Midline tongue present, Yes Ability to bilaterally elevate shoulders present and No Nystagmus present Gait exam (Neuro): Normal gait present Extrem General: Yes normal to inspection, Yes full ROM, No no pedal edema and No edema Psych Speech and movement: Normal speech and movement present Affect: normal affect Insight: Good insight present (Psych) Judgement: Good judgement present (Psych) Assessment and Plan Assessment & Plan (1) Annual physical exam: Code(s): Z00.00 - Encounter for general adult medical examination without abnormal findings Plan: Patient is not up-to-date with routine screenings and vaccinations for her age. She does have a kayaking instructor but has not been to an appointment yet. She will follow up with them for annual Pap smears and for control as she is interested in the Depo shots. (2) Back pain: Code(s): M54.9 - Dorsalgia, unspecified Plan: Patient was told when she was younger that she has scoliosis and did not require bracing. She does continue to have mid back pain. We will order for x-ray for further evaluation and can consider physical therapy. (3) Eczema: Code(s): L30.9 - Dermatitis, unspecified Plan: Patient has a history of eczema and we will occasionally use steroid creams as needed for flares. Advised patient to use Aquaphor and Eucerin as needed for dry skin and can use oatmeal bath packets as well. (4) GERD (gastroesophageal reflux disease): Code(s): K21.9 - Gastro-esophageal reflux disease without esophagitis Plan: Patient does complain of symptoms consistent with GERD. Advised patient to use famotidine as needed and if symptoms are not well managed we can consider a daily treatment option. Avoid trigger foods such as citrus, tomato products, soda, caffeine, spicy foods and other foods that may be irritating to your stomach. Avoid laying flat 3-4 hours after eating and elevate the head of the bed 30 degrees to prevent acid from moving into the esophagus. (5) Anxiety: Code(s): F41.9 - Anxiety disorder, unspecified Plan: Patient has history of anxiety with mild depression and regularly follows with counselor every week. Denies need for medication at this time. Plan This note was constructed using voice recognition software. While every effort has been made to ensure accuracy and publishing systems analyst, still areas may have been included sometimes these areas may affect the content or meeting of the given symptoms. Total time spent caring for the patient today was 30 minutes. This includes time spent before the visit reviewing the chart, time spent during the visit, and time spent after the visit and documentation. Orders: Orders Complete Blood Count Auto Diff Today Z00.00 - Encounter for general adult medical examination without abnormal findings Comprehensive Met. Panel Today Z00.00 - Encounter for general adult medical examination without abnormal findings Free T4 (Free Thyroxine) Today Z00.00 - Encounter for general adult medical examination without abnormal findings TSH reflex Free T4 Today Z00.00 - Encounter for general adult medical examination without abnormal findings Vitamin B12 and Folate Today Z00.00 - Encounter for general adult medical examination without abnormal findings XR thoracic spine 1V Today M54.9 - Dorsalgia, unspecified Hemoglobin A1c Today Z00.00 - Encounter for general adult medical examination without abnormal findings Vitamin D 25-OH (D2 and D3) Today Z00.00 - Encounter for general adult medical examination without abnormal findings Medications: Refilled ondansetron 4 mg PO Q8H PRN 20 tabs 0RF nausea and vomiting famotidine (Pepcid) 20 mg PO DAILY PRN 30 tabs 1RF abdominal discomfort Discontinued ondansetron Discontinued Reason: Patient no longer taking 8 mg PO Q12H 3 days PRN 6 tabs 0RF nausea and vomiting Coding Level of Care Code New Pt Level 4 (79063) New Pt Prev Care 18-39yr(66561 Diagnoses Annual physical exam Z00.00 Back pain M54.9 Eczema L30.9 GERD (gastroesophageal reflux disease) K21.9 Anxiety F41.9 Additional Codes VICKIE-7 Assessment Billing - VICKIE-7 Assessment Tool: VICKIE-7 Assessment 55648 ([id number])
== END 2024-02-21 10:15 | disposition home or self-care (01) ==
DX: Z00.00 Encounter for general adult medical examination without abnormal findings (principal); M54.9 Dorsalgia, unspecified; L30.9 Dermatitis, unspecified; K21.9 Gastro-esophageal reflux disease without esophagitis; F41.9 Anxiety disorder, unspecified

== ENCOUNTER 2024-04-19 10:24 | Outpatient (AMB) | payer OTHER, SELFPAY ==
--- NOTE | 2024-04-19 10:40 | A.OFFVIS_ITS ---
Vital Signs 04/19/24 10:41 Height 5 ft 3 in Weight 156 lb BMI 27.6 BP 118/60 Intake Visit Reasons: New patient Annual Powder Coat Painter Required: No Information Interpreted: clinical only Workers' Compensation Commissioner: Workers' Compensation Commissioner Present Allergies No Known Allergies Allergy (Verified 04/19/24 10:41) Medication List - Last Reviewed 04/19/24 by Nicholas Price CMA cetirizine (Zyrtec) 10 mg PO DAILY famotidine 20 mg PO DAILY Lacto no.[id number]-larch 25B cell-25B cell-50 mg caps PO ondansetron 4 mg PO Q8H PRN Is last menstrual period known: Yes Last menstrual period: 04/12/24 HPI HPI New patient Annual: Details: Patient is here for her 1st nurse prn exam. She has never had a Pap smear pelvic exam she has always had her periods are so had a visit so it has not been she has gone to [facility] previous discussions. She is now partners so she would backup control she is using condoms and she intends to stay using them. She does not have it medical concerns she is taking some though they for some acid reflux and she is taking a probiotic daily to help with previous episodes of bv and she thinks it is helping Her periods are heavy and crampy the 1st 2 3 days and then light for the next 2 for total of about 5. She does not exactly keep track of the date she feels like sign the 1st w to the 2ndw, then the 3rd and so on. Because her periods are so crampy 1st day she has wondered about endometriosis because her cousin has it. [facility] Medical History Facial rash Depression Anxiety History of wrist fracture Family History Mother Burns syndrome Father Heart attack Other Mental health problem Social History Housing: House Alcohol intake: current Alcohol intake frequency: a few times a month Patient Tobacco Use Status: Never used Tobacco Tobacco use type: Cigarette e-Cigarette/Vaping Use: Former Use Substance Use Type: Marijuana service: No Current occupational status: employed Cognitive needs: No Hearing needs: No Vision needs: Yes Female Reproductive History Menstrual Age of Menarche: 14 Duration of menses: 3-5 days Date of last menstrual period: 04/12/24 control method: none Total pregnancies: 0 History of abnormal pap smear: No (no previous pap) Physical Exam Vital Signs: Last Vital Signs BP 118/60 04/19/24 10:41 BMI result Body Mass Index 27.6 Const General: healthy appearing, comfortable, no acute distress, well developed and alert Nutritional Appearance: average body habitus Orientation/consciousness: patient oriented x3 Limitations: no limitations HEENT Head: Yes normocephalic Neck Neck: Yes normal visual inspection Thyroid: Thyroid normal Chest Chest palpation & inspection: normal inspection of the chest Breast/axilla inspection: normal inspection of the breasts and normal inspection of the axillae Breast/axilla palpation: normal palpation of the breasts and normal palpation of the axillae Resp Effort & Inspection: normal respiratory effort GI Inspection: Yes normal to inspection, No Abdominal wall edema and No distended Palpation (GI): Soft to palpation and nontender Other: External exam limits vagina pink and moist cervix is pink smooth healthy appearing clear to white discharge consistent with pending ovulation/follicular phase. Cervix is long thick mobile nontender uterus is small very well suspended difficult to feel but nontender and not enlarged, adnexa not enlarged nontender Good tone with Kegel General: Yes bladder normal to palpation External Female Exam: normal external appearance and normal appearance of the urethra Speculum Exam - Vagina: normal appearance of the vagina, normal palpation and normal vaginal discharge Speculum Exam - Cervix: normal appearance of the cervix, normal palpation and nontender Bimanual exam- vagina & uterus: normal bimanual exam, normal palpation, uterine size normal, bladder normal to palpation, consistency normal, normal palpation, uterine mobility normal, uterine shape normal, No Cervical tenderness present, non-tender and no cervical motion tenderness Bimanual Exam- Adnexa, other: normal adnexae, no masses, normal and No adnexal tenderness Neuro General: patient oriented x3 Assessment & Plan Assessment & Plan (1) Well woman exam with routine gynecological exam: Code(s): Z01.419 - Encounter for gynecological examination (general) (routine) without abnormal findings Category: Medical (2) Cervical cancer screening: Code(s): Z12.4 - Encounter for screening for malignant neoplasm of cervix Category: Medical (3) Breast cancer screening: Code(s): Z12.39 - Encounter for other screening for malignant neoplasm of breast Category: Medical (4) control counseling: Code(s): Z30.09 - Encounter for other general counseling and advice on contraception Category: Medical (5) BCP ( control pills) initiation: Code(s): Z30.011 - Encounter for initial prescription of contraceptive pills Category: Medical (6) Encounter for screening examination for sexually transmitted disease: Code(s): Z11.3 - Encounter for screening for infections with a predominantly sexual mode of transmission Category: Medical Plan -----Discussed in this visit the following: healthy balanced diet, regular and consistent exercise, getting recommended health screens, doing the best she can for her particular health concerns, kegel exercises, pap smear screening and followup recommendations, mammography screening and SBE, normal changes in cycles in her life stage--- .Discussed the normal menstrual cycles, in terms of length of time for each part of the cycle, range of experiences for bleeding/periods, cramping and clots and the various ways of handling all of these including the various menstrual produ cts available today and common use of non inflammatory medications such as ibuprofen to help with the cramping, and changes in vaginal and cervical discharge that occur throughout the changes in the menstrual cycle. Also discussed what is happening in the ovaries, with preparing to ovulate, ovulation, and what happens afterward as well. Discussed signs of ovulation including fertile appearing mucus, libido changes, breast changes, ovulatory pain and twinges, and the optimal /most risky times to become . Reviewed that menstrual cycles do not obey the printed calendar, but rather follow the body's own cycle discussed what can sometimes happen if the cycle is interrupted by other health events such as anovulatory cycles. Discussed other metabolic changes that have a very profound effect on menstrual cycles including weight and the increased hormones that occur in that setting. -I reviewed with the patient, all of the currently common used methods of control that are available. We reviewed how they work in the body, how they are taken, common side effects, uncommon side effects, precautions, and contraindications. -Discussed also factors that influence their effectiveness and use, and womens satisfaction with the method. -Discussed how each are used, and drawbacks of each method as well. -Methods covered included: condoms, control pills, control patches, control rings, Depo-Provera, Nexplanon, Mirena and Kyleena IUDs, and ParaGard IUDs. All of the above methods were covered in great detail including their side effect profiles and common experiences that women have and ways to mitigate against the negative experiences including attention to diet and exercise patient's with bleeding challenges that may occur her and efforts to time the initiation of the method to this start of the menstrual period. Detail teaching done about control pills in the it is to pay attention to as well as signs and symptoms happens in addition also discussed great detail how best to take pills issues to be aware of in terms of time of day remembering and common side effects to pay attention to , Prescription sent in. I recommend she pick it up now to have it available to start the 1st her 2nd day of her period and to definitely line up the day of the week sticker the day she starts to help keep her on track. Orders: Orders Pap Smear Today Z00.00 - Encounter for general adult medical examination witho ut abnormal findings CT NG by PCR Today N89.8 - Other specified noninflammatory disorders of vagina, Z20.2 - Contact with and (suspected) exposure to infections with a predominantly sexual mode of transmission Bacterial Vaginosis Panel Today N89.8 - Other specified noninflammatory disorders of vagina Medications: New desog-e.estradiol/e.estradiol 0.15-0.02 mgx21 /0.01 mg x 5 1 tab PO DAILY 84 tabs 4RF Coding Level of Care Code New Pt Prev Care 18-39yr(07547 Diagnoses Well woman exam with routine gynecological exam Z01.419 Cervical cancer screening Z12.4 Breast cancer screening Z12.39 control counseling Z30.09 BCP ( control pills) initiation Z30.011 Encounter for screening examination for sexually transmitted disease Z11.3
[2024-04-19 10:41] VITALS: BP 118/60; BMI 27.6
== END 2024-04-19 13:00 | disposition home or self-care (01) ==
PROVIDERS: Visit Provider Advanced Practice Midwife
DX: Z01.419 Encounter for gynecological examination (general) (routine) without abnormal findings (principal); Z12.4 Encounter for screening for malignant neoplasm of cervix; Z12.39 Encounter for other screening for malignant neoplasm of breast; Z30.09 Encounter for other general counseling and advice on contraception; Z30.011 Encounter for initial prescription of contraceptive pills; Z11.3 Encounter for screening for infections with a predominantly sexual mode of transmission
CPT/HCPCS: 99385

== ENCOUNTER 2024-04-19 10:24 | Outpatient (REF) | payer OTHER, SELFPAY | END 2024-04-19 10:25 | disposition home or self-care (01) | LOC: HO.LNP 10:24 | PROVIDERS: Visit Provider Advanced Practice Midwife | DX: Z01.419 Encounter for gynecological examination (general) (routine) without abnormal findings (principal); N89.8 Other specified noninflammatory disorders of vagina | CPT/HCPCS: 88175; 99385 ==

== ENCOUNTER 2024-04-19 11:57 | Outpatient (REF) | payer OTHER, SELFPAY ==
[2024-04-20 04:19] LABS: CT PCR NOT DETECTED (Not Detect.); NG PCR NOT DETECTED (Not Detect.)
[2024-04-20 12:05] LABS: Bacterial Vaginosis PCR NEGATIVE (Negative); Candida Group PCR NOT DETECTED (Not Detect); Candida glab krusei PCR NOT DETECTED (Not Detect); Trichomonas vaginalis PCR NOT DETECTED (Not Detect)
== END 2024-04-19 11:58 | disposition home or self-care (01) ==
LOC: HO.LAB 11:57
PROVIDERS: Visit Provider Advanced Practice Midwife
DX: N89.8 Other specified noninflammatory disorders of vagina (principal); Z20.2 Contact with and (suspected) exposure to infections with a predominantly sexual mode of transmission
CPT/HCPCS: 0352U; 87491; 87591

== ENCOUNTER 2024-07-17 11:26 | Outpatient (AMB) | payer OTHER, SELFPAY ==
--- NOTE | 2024-07-17 11:36 | MHC.OFFVIS ---
Vital Signs 07/17/24 11:37 Height 5 ft 3 in Weight 159 lb BMI 28.2 BP 116/68 Intake Visit Reasons: 3 month pill check Glass Installer Technician Required: No Glass Installer Technician Services: Glass Installer Technician Present Information Interpreted: clinical only Station Engineer: Station Engineer Present Allergies No Known Allergies Allergy (Verified 07/17/24 11:37) Medication List - Last Reconciled 07/17/24 by Melody Hernandez CNM cetirizine (Zyrtec) 10 mg PO DAILY desog-e.estradiol/e.estradiol 0.15-0.02 mgx21 /0.01 mg x 5 1 tab PO DAILY famotidine 20 mg PO DAILY ondansetron 4 mg PO Q8H PRN Is last menstrual period known: Yes Last menstrual period: 06/26/24 HPI HPI 3 month pill check: Details: Patient is here for three-month pill check she feels that the pills have had a deleterious effect for her in that her headaches got worse and she feels her PMD symptoms got worse as well she tried to ride it out for the full 3 months and she has about 10 pills left in her pill packs and she intends to finish the pack but we have had a full discussion of all of the other options and all of her symptoms as she was on Zoloft in the past visits suppression and she has been in therapy for a long time and she also has a history of her periods being very heavy and crampy they last about 5 days total when not on pills and are very crampy the 1st 2 days and can be bad enough that she has to call out of work etc. on the pill they are public service representative getting better in that way but the PMB FRANTZ symptoms in the migraines worse. She takes a has a for the migraines. She is currently not on anything for depression she was kind of hoping she would not have to be. She is very clear that she does not want to get and if she could take out her ovaries, she would. This is the 1st time she has been in the relationship with a man so she has never had to worry about control but she is very afraid of getting she does use condoms as well as pills but she is paranoid about it. [facility] Medical History (Updated 07/17/24 @ 12:46 by Melody Hernandez CNM) Facial rash Depression Anxiety History of wrist fracture Family History Mother Burns syndrome Father Heart attack Other Mental health problem Social History (Reviewed 07/17/24 @ 11:39 by Nicholas Price [facility]) Housing: House Alcohol intake: current Alcohol intake frequency: a few times a month Patient Tobacco Use Status: Never used Tobacco Tobacco use type: Cigarette e-Cigarette/Vaping Use: Former Use Substance Use Type: Marijuana service: No Current occupational status: employed Cognitive needs: No Hearing needs: No Vision needs: Yes Female Reproductive History Menstrual Age of Menarche: 14 Duration of menses: 3-5 days Date of last menstrual period: 06/26/24 control method: pills Total pregnancies: 0 Date of last pap smear: 04/20/24 (negative) Physical Exam Vital Signs: Last Vital Signs BP 116/68 07/17/24 11:37 BMI result Body Mass Index 28.2 Assessment & Plan Assessment & Plan (1) Cervical cancer screening: Comment: 04/19/2024 Pap is negative. Code(s): Z12.4 - Encounter for screening for malignant neoplasm of cervix Category: Medical (2) control counseling: Code(s): Z30.09 - Encounter for other general counseling and advice on contraception Category: Medical (3) Anxiety: Code(s): F41.9 - Anxiety disorder, unspecified Category: Medical (4) Depression: Comment: ? Patient also identifies as having additional PMDD Code(s): F32.A - Depression, unspecified Category: Medical Plan We again reviewed all of the methods of control and her experience on pills and her experience if her periods before in her experience of depression and anxiety and PMDD and all of her symptoms, and discussed the range of possibilities open available to her and what the side effects of each of them would be. Discussed that my experiences that many women find a worsening of depressive symptoms especially on the implant control and some diminishing mood and libido can be present with any of the hormonal methods of control it was a surprise that PND is experienced as worse on these pills but that is her experience. She questioned whether not a lower dose of estrogen could be a views though I did research other alternatives and I had prescribed for her the 1 of the lowest doses of estrogen pills that are available. Discussed 1 alternative which would be to prescribe progestin only pills just to see if that made any difference for her they have no estrogen whatsoever. Discussed that if these are not helpful for her the only other suggestion I might make would be a Mirena IU S to help with her symptoms of her menses and also to have a leveling off of all of the hormonal shifts in its some women do report that it makes a difference to not cycle all the time. It was not her 1st choice but we had the full discussion so that she does know what other alternatives aerobic to. She did not find it helpful to not be on any hormonal method at all as she has such anxiety about getting and is very very careful with the pills and also uses condoms because of this fear. In addition her periods were very very dad so having them a little bit public service representative is of some benefit. I prescribed progestin only pills and discontinued her other pills I recommend she finish out this pill pack and then simply switch very next day to the new progestin only pills I recommend trying for least 3 months but she will notice what ever changes she will experience sooner than that and she makes up her mind to do something different beforehand that is fine discussed that if she did want to try a Mirena it would be best to insert it in the 1st day or 2 of her heavy period. 3 months to review change in control pills Medications: New norethindrone (contraceptive) 0.35 mg PO DAILY 84 tabs 4RF Discontinued desog-e.estradiol/e.estradiol 0.15-0.02 mgx21 /0.01 mg x 5 Discontinued Reason: Patient Completed Course 1 tab PO DAILY 84 tabs 4RF Coding Level of Care Code Est Pt Level 3 (81761) Diagnoses Cervical cancer screening Z12.4 control counseling Z30.09 Anxiety F41.9 Depression F32.A Time Spent (min) 40 Comment 100% discuss in her experience with control and making changes
[2024-07-17 11:37] VITALS: BP 116/68; BMI 28.2
== END 2024-07-17 13:08 | disposition home or self-care (01) ==
PROVIDERS: Visit Provider Advanced Practice Midwife
DX: Z30.41 Encounter for surveillance of contraceptive pills (principal); F41.9 Anxiety disorder, unspecified; F32.A Depression, unspecified
CPT/HCPCS: 99213

== ENCOUNTER → 2024-07-17 11:26 | Outpatient (BNVA) | payer OTHER, SELFPAY | PROVIDERS: Visit Provider Advanced Practice Midwife | DX: F41.9 Anxiety disorder, unspecified (principal); F32.A Depression, unspecified; Z30.09 Encounter for other general counseling and advice on contraception; Z79.3 Long term (current) use of hormonal contraceptives | CPT/HCPCS: 99212 ==

== ENCOUNTER 2024-08-08 14:33 | Outpatient (AMB) | payer OTHER, SELFPAY ==
--- NOTE | 2024-08-08 14:34 | A.OFFPC_ITS ---
Intake Visit Reasons: medication discussion Intake Note: Patient is here to follow up on Medication review. Metal Tester Required: No Installment Loan Collector: Not Required per policy Accompanied by: Self / Same As Patient Allergies No Known Allergies Allergy (Verified 08/08/24 14:34) Medication List - Last Reconciled 08/08/24 by Patricia Medel PA-C cetirizine (Zyrtec) 10 mg PO DAILY famotidine 20 mg PO DAILY norethindrone (contraceptive) 0.35 mg PO DAILY ondansetron 4 mg PO Q8H PRN Tobacco use date assessed: 02/21/24 Dental Screening Dental Screen Date: 08/08/24 Did you have a dental visit in the last 12 months?: Yes Did you have a dental problem in the last 6 months where you did not have access to dental care?: No Was dental information given to patient?: Patient has dentist HPI medication discussion HPI Details 29 year old female with past medical his tory of eczema last seen 02/2024 presenting via telehealth for concerns of anxiety and depression. Patient tells us today she has been struggling with worsening anxiety and depressive symptoms. She describes symptoms as having lack of motivation and feeling overwhelmed and hopeless. She has a history of being on Zoloft in the past and found them helpful. She also previously saw a counselor and did not find this helpful. She denies any symptoms of SI or HI. [facility] Medical History Facial rash Depression Anxiety History of wrist fracture Surgical History History of surgery on wrist Family History Mother Burns syndrome Father Heart attack Other Mental health problem Social History Housing: House Alcohol intake: current Alcohol intake frequency: a few times a month Patient Tobacco Use Status: Never used Tobacco Tobacco use type: Cigarette e-Cigarette/Vaping Use: Currently Using Frequency of e-Cigarette/Vaping Use: Occassional Second Hand Smoke Exposure: No Substance Use Type: Marijuana service: No Current occupational status: employed Cognitive needs: No Hearing needs: No Vision needs: Yes (Glasses) Female Reproductive History Menstrual Age of Menarche: 14 Questionnaire PHQ-9 Over the last 2 weeks, how often have you been bothered by any of the following problems? 1. Little interest or pleasure in doing things: more than half the days 2. Feeling down, depressed, or hopeless: more than half the days 3. Trouble falling or staying asleep, or sleeping too much: several days 4. Feeling tired or having little energy: nearly every day 5. Poor appetite or overeating: more than half the days 6. Feeling bad about yourself - or that you are a failure or have let yourself or your family down: several days 7. Trouble concentrating on things, such as reading the newspaper or watching television: more than half the days 8. Moving or speaking so slowly that other people could have noticed. Or the opposite - being so fidgety or restless that you have been moving around a lot more than usual: not at all 9. Thoughts that you would be better off or of hurting yourself in some way: not at all Total score: 13 Depression Screening Interpretation: Positive Depression Screening Follow-up: New Medication prescribed Depression Screening Done: Yes Source: Developed by Drs. Bean Marx, Alva Rob, Josh Charles and colleagues, with an educational ludivina from [employer]. Thrive Questionnaire Date Thrive assessed: 08/08/24 I am a: Patient What is your living situation today?: I have a steady place to live Within the past 12 months, did the food you bought not last and you didn't have the money to get more?: Never true Within the past 12 months, did you worry whether your food would run out before you got money to buy more?: Never true Do you have trouble paying for medicines?: No Do you have trouble getting transportation to medical appointments?: No Do you have trouble paying your heating and electricity bill?: No Do you have trouble taking care of your child, family member or friend?: No Do you have trouble with day-to-day activities such as bathing, preparing meals, shopping, managing finances, etc.?: No Are you currently unemployed and looking for a job?: No Are you interested in more education?: No Please select the resources that you would like help with: None Currently or been in a relationship where the following occur: No concerns reported THRIVE Score: 0 AUDIT C Alcohol Use Questionnaire (AUDIT-C) 2. How many drinks containing alcohol do you have on a typical day when you are drinking?: 3 or 4 3. How often do you have six or more drinks on one occasion?: Less than monthly Total Score: 2 VICKIE-7 AMB Questionnaire VICKIE-7 Date VICKIE - 7 assessed: 08/08/24 Feeling nervous, anxious, or on edge: 3 = Nearly every day Not being able to stop or control worryin = More than half the days Worrying too much about different things: 2 = More than half the days Trouble relaxin = More than half the days Being so restless that it is hard to sit still: 1 = Several days Becoming easily annoyed or irritable: 3 = Nearly every day Feeling afraid as if something awful might happen: 3 = Nearly every day Total VICKIE-7 score (0-4 normal; 5-9 mild; 10-14 moderate; 15-21 severe): 16 Source: Developed by Drs. Bean Marx, Alva Rob, Josh Charles and colleagues, with an educational ludivina from [employer]. Review of Systems Const Denies body aches, Denies chills, Denies fever(s), Denies headache(s) and Denies poor appetite Eyes Reports no additional complaints ENT Denies dizziness and Denies headache(s) Card Denies chest pain, Denies syncope and Denies dyspnea Resp Denies cough and Denies dyspnea GI Denies abdominal pain, Denies constipation, Denies diarrhea, Denies nausea and Denies vomiting Reports no additional complaints Musc Reports no additional complaints and Denies abnormal gait Skin/Breast Reports system reviewed and no additional complaints, except as documented Neuro Denies abnormal gait, Denies dizziness, Denies syncope and Denies headache(s) Psych Reports no additional complaints Physical exam (Primary Care) Vital Signs: Physical exam not performed due to nature of telehealth visit Tobacco/Smoking Status: Tobacco use Status Tobacco use date assessed 02/21/24 08/08/24 14:39 Patient Tobacco Use Status Never used Tobacco 08/08/24 14:39 Tobacco use type Cigarette 08/08/24 14:39 e-Cigarette/Vaping Use Currently Using 08/08/24 14:39 PHQ-9: PHQ-9 Score PHQ-9: Total score 13 08/08/24 14:56 Depression Screening Interpretation: Positive Depression Screening Follow-up: New Medication prescribed Thrive Assessment: Date of Thrive Assessment Date Thrive assessed 08/08/24 08/08/24 14:39 Currently or been in a relationship where the following occur: No concerns reported Telehealth Telehealth Telehealth Platform: Telephone Location of provider rendering services: practice address Location of patient: address on file Patient Identification confirmed using: Name, : Yes Telehealth method: voice only Patient verbally consented to treatment: Yes Patient verbally consented to billing insurance company: Yes Patient informed of any privacy concerns related to visit: Yes Coding Level of Care Code Tele Est Pt Level 3 (96341) Diagnoses Depression F32.A Anxiety F41.9 Assessment & Plan Assessment & Plan (1) Depression: Comment: ? Patient also identifies as having additional PMDD Code(s): F32.A - Depression, unspecified Category: Medical Plan: Plan to restart on Zoloft 25 mg. Advised patient if she does not see good improvement of her symptoms after 2 months to reach out to the office and plan to increase to 50 mg tablet. Patient was counseled on side effects of this medication and when to present for re-evaluation. Plan to follow up in 3 months or sooner if new problems arise. (2) Anxiety: Code(s): F41.9 - Anxiety disorder, unspecified Category: Medical Plan: Plan to restart on Zoloft 25 mg. Advised patient if she does not see good improvement of her symptoms after 2 months to reach out to the office and plan to increase to 50 mg tablet. Patient was counseled on side effects of this medication and when to present for re-evaluation. Plan to follow up in 3 months or sooner if new problems arise. Plan This note was constructed using voice recognition software. While every effort has been made to ensure accuracy and mobile homes repairer, still areas may have been included sometimes these areas may affect the content or meeting of the given symptoms. Total time spent caring for the patient today was 20 minutes. This includes time spent before the visit reviewing the chart, time spent during the visit, and time spent after the visit and documentation. Medications: New sertraline 25 mg PO DAILY 90 tabs 2RF Refilled ondansetron 4 mg PO Q8H PRN 20 tabs 0RF nausea and vomiting
== END 2024-08-08 15:05 | disposition home or self-care (01) ==
LOC: HO.HMCH 14:33
DX: F32.A Depression, unspecified (principal); F41.9 Anxiety disorder, unspecified

== ENCOUNTER 2024-11-13 08:57 | Outpatient (AMB) | payer OTHER, SELFPAY ==
--- NOTE | 2024-11-13 09:03 | MHC.PC.OV ---
Vital Signs 11/13/24 09:07 Height 5 ft 3 in Weight 176 lb 8 oz BMI 31.3 BP 120/60 Blood Pressure Location Lt brachial Position Sitting Pulse 86 Pulse Source Pulse Oximeter Temp 97.3 F Temp Source Temporal Artery Scan Pulse Oximetry (%) 95 Oxygen Delivery Method Room Air Intake Visit Reasons: 3 month f/u Intake Note: Patient is here to follow up on Back pain, GERD, Depression. Network Design Architect Required: No Air Pollution Analyst: Not Required per policy Accompanied by: Self / Same As Patient Allergies No Known Allergies Allergy (Verified 11/13/24 09:04) Medication List - Last Reviewed 11/13/24 by DORA Limon cetirizine (Zyrtec) 10 mg PO DAILY famotidine 20 mg PO DAILY norethindrone (contraceptive) 0.35 mg PO DAILY ondansetron 4 mg PO Q8H PRN sertraline 25 mg PO DAILY Tobacco use date assessed: 11/13/24 Dental Screening Dental Screen Date: 08/08/24 HPI 3 month f/u HPI Details 29-year-old female with past medical history of eczema last seen 08/2024 coming in for three-month follow up.? At last visit patient was started on Zoloft 25 mg. Presenting with depression. The initiation of sertraline at 25 mg daily has led to notable improvement in depressive symptoms. Weight gain has been associated with lifestyle factors and potential sertraline side effects. The patient experiences gastroesophageal reflux disease, managed by avoiding citrus foods and use of Famotidine. Initial headaches resolved after changing to norethindrone-based contraception, though early irregular bleeding occurred, now stabilizing. [facility] Medical History Facial rash Depression Anxiety History of wrist fracture Surgical History History of surgery on wrist Family History Mother Burns syndrome Father Heart attack Other Mental health problem Social History Housing: House Alcohol intake: current Alcohol intake frequency: a few times a month Patient Tobacco Use Status: Never used Tobacco Tobacco use type: Cigarette e-Cigarette/Vaping Use: Currently Using Frequency of e-Cigarette/Vaping Use: Ocassional Second Hand Smoke Exposure: No Substance Use Type: Marijuana service: No Current occupational status: employed Cognitive needs: No Hearing needs: No Vision needs: Yes (Glasses) Female Reproductive History Menstrual Age of Menarche: 14 Questionnaire PHQ-9 Over the last 2 weeks, how often have you been bothered by any of the following problems? 1. Little interest or pleasure in doing things: not at all 2. Feeling down, depressed, or hopeless: several days 3. Trouble falling or staying asleep, or sleeping too much: not at all 4. Feeling tired or having little energy: several days 5. Poor appetite or overeating: several days 6. Feeling bad about yourself - or that you are a failure or have let yourself or your family down: not at all 7. Trouble concentrating on things, such as reading the newspaper or watching television: several days 8. Moving or speaking so slowly that other people could have noticed. Or the opposite - being so fidgety or restless that you have been moving around a lot more than usual: not at all 9. Thoughts that you would be better off or of hurting yourself in some way: not at all Total score: 4 Depression Screening Interpretation: Positive Depression Screening Done: Yes Source: Developed by Drs. Bean Marx, Alva Rob, Josh Charles and colleagues, with an educational ludivina from [employer]. Thrive Questionnaire Date Thrive assessed: 08/08/24 I am a: Patient What is your living situation today?: I have a steady place to live Within the past 12 months, did the food you bought not last and you didn't have the money to get more?: Never true Within the past 12 months, did you worry whether your food would run out before you got money to buy more?: Never true Do you have trouble paying for medicines?: No Do you have trouble getting transportation to medical appointments?: No Do you have trouble paying your heating and electricity bill?: No Do you have trouble taking care of your child, family member or friend?: No Do you have trouble with day-to-day activities such as bathing, preparing meals, shopping, managing finances, etc.?: No Are you currently unemployed and looking for a job?: No Are you interested in more education?: No Please select the resources that you would like help with: None Currently or been in a relationship where the following occur: No concerns reported THRIVE Score: 0 AUDIT C Alcohol Use Questionnaire (AUDIT-C) 1. How often do you have a drink containing alcohol?: 2-4 times a month Total Score: 2 VICKIE-7 AMB Questionnaire VICKIE-7 Date VICKIE - 7 assessed: 11/13/24 Feeling nervous, anxious, or on edge: 1 = Several days Not being able to stop or control worryin = Not at all Worrying too much about different things: 0 = Not at all Trouble relaxin = Not at all Being so restless that it is hard to sit still: 0 = Not at all Becoming easily annoyed or irritable: 0 = Not at all Feeling afraid as if something awful might happen: 0 = Not at all Total VICKIE-7 score (0-4 normal; 5-9 mild; 10-14 moderate; 15-21 severe): 1 Source: Developed by Drs. Bean Marx, Alva Rob, Josh Charles and colleagues, with an educational ludivina from [employer]. Review of Systems Const Denies body aches, Denies chills, Denies fever(s), Denies headache(s) and Denies poor appetite Eyes Reports no additional complaints ENT Denies dizziness and Denies headache(s) Card Denies chest pain and Denies dyspnea Resp Denies cough and Denies dyspnea GI Denies abdominal pain, Reports heartburn, Denies nausea and Denies vomiting Reports no additional complaints Musc Reports no additional complaints and Denies abnormal gait Skin/Breast Reports system reviewed and no additional complaints, except as documented Neuro Denies abnormal gait, Denies dizziness and Denies headache(s) Psych Reports no additional complaints Physical exam (Primary Care) Vital Signs: Last Vital Signs Temp 97.3 F 11/13/24 09:07 Pulse 86 11/13/24 09:07 BP 120/60 11/13/24 09:07 Pulse Ox 95 11/13/24 09:07 Oxygen Delivery Method Room Air 11/13/24 09:07 BMI result Body Mass Index 31.3 Tobacco/Smoking Status: Tobacco use Status Tobacco use date assessed 11/13/24 11/13/24 09:12 Patient Tobacco Use Status Never used Tobacco 11/13/24 09:11 Tobacco use type Cigarette 11/13/24 09:11 e-Cigarette/Vaping Use Currently Using 11/13/24 09:11 PHQ-9: PHQ-9 Score PHQ-9: Total score 4 11/13/24 09:04 Depression Screening Interpretation: Positive Thrive Assessment: Date of Thrive Assessment Date Thrive assessed 08/08/24 11/13/24 09:04 Currently or been in a relationship where the following occur: No concerns reported Const General: cooperative, healthy appearing, comfortable and no acute distress Orientation/consciousness: patient oriented x3 HENMT Head: Yes normocephalic Ears: hearing grossly normal bilaterally General nose exam: Normal external nose present Eyes General: appearance normal, both eyes and all related structures Conjunctivae: conjunctivae normal Neck Neck: Yes full ROM and Yes no lymphadenopathy Resp Effort & Inspection: normal respiratory effort Auscultation: clear to auscultation bilaterally, no crackles, no rales, no rhonchi and no wheezes Cardio Rate: regular rate Rhythm: regular rhythm Skin General skin exam: no rashes or lesions noted Neuro General: patient oriented x3 Gait exam (Neuro): Normal gait present Extrem General: Yes normal to inspection, Yes full ROM and No edema Psych Affect: normal affect Attitude: cooperative Insight: Good insight present (Psych) Judgement: Good judgement present (Psych) Coding Level of Care Code Est Pt Level 3 (96241) Diagnoses Depression F32.A Anxiety F41.9 GERD (gastroesophageal reflux disease) K21.9 Irregular menses N92.6 Assessment & Plan Assessment & Plan (1) Depression: Comment: Patient also identifies as having additional PMDD Code(s): F32.A - Depression, unspecified Category: Medical Plan: I advise maintaining sertraline at 25 mg and focus on weight management through lifestyle adjustments. Counseling was offered but was declined by the patient today. Plan to follow up at next visit and advised patient to reach out if she begins to have side effects or feels this dose is ineffective. (2) Anxiety: Code(s): F41.9 - Anxiety disorder, unspecified Category: Medical Plan: See above (3) GERD (gastroesophageal reflux disease): Code(s): K21.9 - Gastro-esophageal reflux disease without esophagitis Category: Medical Plan: Avoid trigger foods such as citrus, tomato products, soda, caffeine, spicy foods and other foods that may be irritating to your stomach. Avoid laying flat 3-4 hours after eating and elevate the head of the bed 30 degrees to prevent acid from moving into the esophagus. Continue on famotidine. (4) Irregular menses: Code(s): N92.6 - Irregular menstruation, unspecified Category: Medical Plan: Patient having irregular menses after switching control pill she states the bleeding has begun to normalize. Advised to follow up with gynecology if irregular menses should persist. Plan This note was constructed using voice recognition software. While every effort has been made to ensure accuracy and coffee maker servicer, still areas may have been included sometimes these areas may affect the content or meeting of the given symptoms. Total time spent caring for the patient today was 20 minutes. This includes time spent before the visit reviewing the chart, time spent during the visit, and time spent after the visit and documentation. Patient was informed and verbally consented to the use of an ambient scribe for clinic note documentation during this visit. Orders: Orders Comprehensive Met. Panel Today K21.9 - Gastro-esophageal reflux disease without esophagitis, Z00.00 - Encounter for general adult medical examination without abnormal findings TSH reflex Free T4 Today F41.9 - Anxiety disorder, unspecified, Z00.00 - Encounter for general adult medical examination without abnormal findings Free T4 (Free Thyroxine) Today F41.9 - Anxiety disorder, unspecified, Z00.00 - Encounter for general adult medical examination without abnormal findings Complete Blood Count Auto Diff Today K21.9 - Gastro-esophageal reflux disease without esophagitis, Z00.00 - Encounter for general adult medical examination without abnormal findings Vitamin B12 and Folate Today F41.9 - Anxiety disorder, unspecified, Z13.21 - Encounter for screening for nutritional disorder Vitamin D 25-OH Total Today F41.9 - Anxiety disorder, unspecified, Z00.00 - Encounter for general adult medical examination without abnormal findings Medications: Refilled famotidine 20 mg PO DAILY 90 tabs 1RF for abdominal pain ondansetron 4 mg PO Q8H PRN 20 tabs 0RF nausea and vomiting
[2024-11-13 09:07] VITALS: BP 120/60; PULSE 86; TEMP 36.3; O2SAT 95; BMI 31.3
== END 2024-11-13 09:50 | disposition home or self-care (01) ==
LOC: HO.HMCH 08:58
DX: F32.A Depression, unspecified (principal); F41.9 Anxiety disorder, unspecified; K21.9 Gastro-esophageal reflux disease without esophagitis; N92.6 Irregular menstruation, unspecified

== ENCOUNTER → 2024-11-13 08:57 | Outpatient (BNVA) | payer OTHER, SELFPAY | DX: F32.A Depression, unspecified (principal); F41.9 Anxiety disorder, unspecified; K21.9 Gastro-esophageal reflux disease without esophagitis; N92.6 Irregular menstruation, unspecified; Z79.899 Other long term (current) drug therapy; Z13.31 Encounter for screening for depression; Z13.30 Encounter for screening examination for mental health and behavioral disorders, unspecified | CPT/HCPCS: 99212 ==

== ENCOUNTER 2025-04-19 09:24 | Outpatient (AMB) | payer OTHER, SELFPAY ==
[2025-04-19 09:27] VITALS: BP 118/70; PULSE 89; TEMP 36.3; O2SAT 97; BMI 32.9
--- NOTE | 2025-04-19 09:27 | MHC.PC.OV ---
Vital Signs 04/19/25 09:27 Height 5 ft 3 in Weight 186 lb BMI 32.9 BP 118/70 Blood Pressure Location Lt brachial Position Sitting Pulse 89 Pulse Source Pulse Oximeter Temp 97.3 F Temp Source Temporal Artery Scan Pulse Oximetry (%) 97 Oxygen Delivery Method Room Air Intake Visit Reasons: physical Intake Note: Patient is here to follow up on Back pain, GERD, Depression. Geography Head Required: No Preconstruction Manager: Not Required per policy Accompanied by: Self / Same As Patient Allergies sertraline Adverse Reaction (Mild, Verified 04/19/25 09:40) Nausea Medication List - Last Reconciled 04/19/25 by Patricia Medel PA-C cetirizine (Zyrtec) 10 mg PO DAILY famotidine 20 mg PO DAILY norethindrone (contraceptive) 0.35 mg PO DAILY ondansetron 4 mg PO Q8H PRN Tobacco use date assessed: 11/13/24 Dental Screening Dental Screen Date: 08/08/24 HPI physical HPI Details 29-year-old female with past medical history of eczema and depression last seen 11/2024 coming in for annual exam. Presenting for follow-up on medication management for anxiety and depression, contraception, and gastroesophageal reflux disease. Regarding her mental health, the patient recently discontinued sertraline due to severe, persistent nausea that did not resolve with food. She feels she is not doing well without medication and believes she needs it, particularly while taking control. For her GERD, the patient takes famotidine daily, which she believes is helping, as her symptoms worsened when she temporarily ran out of the medication. However, her symptoms are not fully controlled, as she feels the need to eat every three hours to prevent getting sick. The patient also reports having really bad back pain in a specific spot in the middle of her spine, an area where she has been told she has borderline scoliosis. The pain has been worse recently, and she sits a lot for work. She has a history of eczema, which is currently not severe but is exacerbated by anxiety. Her hands are most affected in the winter, and she gets a rash on her face around her mouth and eye in the summer. She reports her daily allergy medication has helped her skin significantly. 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 vaccines: Tdap UTD declined flu shot [facility] Medical History Facial rash Depression Anxiety History of wrist fracture Surgical History History of surgery on wrist Family History Mother Burns syndrome Father Heart attack Other Mental health problem Social History Housing: House Alcohol intake: current Alcohol intake frequency: a few times a month Patient Tobacco Use Status: Never used Tobacco Tobacco use type: Cigarette e-Cigarette/Vaping Use: Currently Using Second Hand Smoke Exposure: No Substance Use Type: Marijuana service: No Current occupational status: employed Cognitive needs: No Hearing needs: No Vision needs: Yes (Glasses) Female Reproductive History Menstrual Age of Menarche: 14 control method: pills Total pregnancies: 0 Questionnaire PHQ-9 Over the last 2 weeks, how often have you been bothered by any of the following problems? 1. Little interest or pleasure in doing things: not at all 2. Feeling down, depressed, or hopeless: several days 3. Trouble falling or staying asleep, or sleeping too much: not at all 4. Feeling tired or having little energy: several days 5. Poor appetite or overeating: several days 6. Feeling bad about yourself - or that you are a failure or have let yourself or your family down: not at all 7. Trouble concentrating on things, such as reading the newspaper or watching television: several days 8. Moving or speaking so slowly that other people could have noticed. Or the opposite - being so fidgety or restless that you have been moving around a lot more than usual: not at all 9. Thoughts that you would be better off or of hurting yourself in some way: not at all Total score: 4 Depression Screening Interpretation: Positive Depression Screening Done: Yes Source: Developed by Drs. Bean Marx, Alva Rob, Josh Charles and colleagues, with an educational ludivina from [employer]. Thrive Questionnaire Date Thrive assessed: 11/13/24 I am a: Patient What is your living situation today?: I have a steady place to live Within the past 12 months, did the food you bought not last and you didn't have the money to get more?: Never true Within the past 12 months, did you worry whether your food would run out before you got money to buy more?: Never true Do you have trouble paying for medicines?: No Do you have trouble getting transportation to medical appointments?: No Do you have trouble paying your heating and electricity bill?: No Do you have trouble taking care of your child, family member or friend?: No Do you have trouble with day-to-day activities such as bathing, preparing meals, shopping, managing finances, etc.?: No Are you currently unemployed and looking for a job?: No Are you interested in more education?: No Please select the resources that you would like help with: None Currently or been in a relationship where the following occur: No concerns reported THRIVE Score: 0 AUDIT C Alcohol Use Questionnaire (AUDIT-C) 1. How often do you have a drink containing alcohol?: 2-4 times a month Total Score: 2 VICKIE-7 AMB Questionnaire VICKIE-7 Date VICKIE - 7 assessed: 11/13/24 Feeling nervous, anxious, or on edge: 1 = Several days Not being able to stop or control worryin = Not at all Worrying too much about different things: 0 = Not at all Trouble relaxin = Not at all Being so restless that it is hard to sit still: 0 = Not at all Becoming easily annoyed or irritable: 0 = Not at all Feeling afraid as if something awful might happen: 0 = Not at all Total VICKIE-7 score (0-4 normal; 5-9 mild; 10-14 moderate; 15-21 severe): 1 Source: Developed by Drs. Bean Marx, Alva Rob, Josh Charles and colleagues, with an educational ludivina from [employer]. Review of Systems Const Denies body aches, Denies fatigue, Denies fever(s), Denies frequent falls, Denies headache(s) and Denies weakness Eyes Reports no additional complaints and Denies change in vision ENT Denies dysphagia, Denies dizziness, Denies facial pain, Denies headache(s), Denies nasal congestion and Denies odynophagia Card Denies chest pain, Denies syncope, Denies irregular heart rhythm, Denies leg edema, Denies lightheadedness and Denies dyspnea Resp Denies cough and Denies dyspnea GI Denies constipation, Denies dysphagia, Reports dyspepsia, Reports heartburn (reflux), Denies diarrhea, Reports nausea, Denies odynophagia and Denies vomiting Denies urinary frequency, Denies dysuria, Denies urinary hesitancy and Denies urinary urgency Musc Reports back pain and Denies myalgias Skin/Breast Reports system reviewed and no additional complaints, except as documented Neuro Denies dizziness, Denies syncope, Denies frequent falls, Denies headache(s) and Denies weakness Psych Reports no additional complaints Endo Denies fatigue Physical exam (Primary Care) Vital Signs: Last Vital Signs Temp 97.3 F 04/19/25 09:27 Pulse 89 04/19/25 09:27 BP 118/70 04/19/25 09:27 Pulse Ox 97 04/19/25 09:27 Oxygen Delivery Method Room Air 04/19/25 09:27 BMI result Body Mass Index 32.9 Tobacco/Smoking Status: Tobacco use Status Tobacco use date assessed 11/13/24 04/19/25 09:33 Patient Tobacco Use Status Never used Tobacco 04/19/25 09:33 Tobacco use type Cigarette 04/19/25 09:33 e-Cigarette/Vaping Use Currently Using 04/19/25 09:33 PHQ-9: PHQ-9 Score PHQ-9: Total score 4 04/19/25 09:51 Depression Screening Interpretation: Positive Thrive Assessment: Date of Thrive Assessment Date Thrive assessed 11/13/24 04/19/25 09:33 Currently or been in a relationship where the following occur: No concerns reported Const General: cooperative, healthy appearing, comfortable and no acute distress Orientation/consciousness: patient oriented x3 HENMT Head: Yes normocephalic Ears: hearing grossly normal bilaterally, external ears normal, TM's normal bilaterally and EAC's normal General nose exam: Normal external nose present Face and sinus: Yes normal facial exam and Yes sinuses nontender Mouth: Normal oral and palatal mucosa present and tongue normal Throat: Yes posterior oropharynx normal Eyes General: appearance normal, both eyes and all related structures Conjunctivae: conjunctivae normal Pupils: Equal, round and reactive pupils present EOM: EOMs intact bilaterally and No Nystagmus present Neck Neck: Yes normal visual inspection, Yes full ROM and Yes no lymphadenopathy Chest Chest palpation & inspection: normal inspection of the chest Resp Effort & Inspection: normal respiratory effort Auscultation: clear to auscultation bilaterally, no crackles, no rales, no rhonchi, no wheezes and breath sounds present Cardio Rate: regular rate Rhythm: regular rhythm Peripheral pulses: radial pulses present and dorsalis pedis present GI Inspection: Yes normal to inspection and No Abdominal wall edema Palpation (GI): Soft to palpation, not firm and nontender Auscultation: normal bowel sounds Rectal Exam - Female: deferred General: Yes no CVA tenderness Back/Spine/Pelvis Back: no CVA tenderness Skin General skin exam: no rashes or lesions noted Neuro General: patient oriented x3 Cranial nerves: Yes Equal, round and reactive pupils present, Yes Midline tongue present, Yes Ability to bilaterally elevate shoulders present and No Nystagmus present Gait exam (Neuro): Normal gait present Extrem General: Yes normal to inspection, Yes full ROM, No no pedal edema and No edema Psych Speech and movement: Normal speech and movement present Affect: normal affect Insight: Good insight present (Psych) Judgement: Good judgement present (Psych) Coding Level of Care Code Est Pt Prev Care [id number]) Diagnoses Annual physical exam Z00.00 Depression F32.A Anxiety F41.9 GERD (gastroesophageal reflux disease) K21.9 Irregular menses N92.6 Cervical cancer screening Z12.4 Eczema L30.9 Back pain M54.9 Insomnia G47.00 Assessment & Plan Assessment & Plan (1) Annual physical exam: Code(s): Z00.00 - Encounter for general adult medical examination without abnormal findings Category: Medical Plan: Patient is up to date on all recommended routine screenings and vaccinations for her age. Reminded patient about blood work. Healthy diet and regular exercise is encouraged. PLan to follow up in 2 months or sooner as needed. (2) Depression: Comment: Patient also identifies as having additional PMDD Code(s): F32.A - Depression, unspecified Category: Medical Plan: The patient has experienced intolerable nausea with sertraline and has discontinued it. She feels that she requires medication for her anxiety and depression. A new prescription for Lexapro (escitalopram) 5 mg daily will be initiated. She is advised that she can increase the dose to 10 mg after one month if she feels it is not working adequately and should inform me if she does so. If side effects like nausea or headaches do not improve within a week and a half, she should stop the medication. (3) Anxiety: Code(s): F41.9 - Anxiety disorder, unspecified Category: Medical Plan: See above (4) GERD (gastroesophageal reflux disease): Code(s): K21.9 - Gastro-esophageal reflux disease without esophagitis Category: Medical Plan: Avoid trigger foods such as citrus, tomato products, soda, caffeine, spicy foods and other foods that may be irritating to your stomach. Avoid laying flat 3-4 hours after eating and elevate the head of the bed 30 degrees to prevent acid from moving into the esophagus. Continue on famotidine and increase to 40mg. Referral was placed to nutrition at patient request. (5) Irregular menses: Code(s): N92.6 - Irregular menstruation, unspecified Category: Medical Plan: Patient having irregular menses after switching control pill she will continue to follow with geoscience laboratory technician for this concern. (6) Cervical cancer screening: Comment: 04/19/2024 Pap is negative. Code(s): Z12.4 - Encounter for screening for malignant neoplasm of cervix Category: Medical Plan: Continue to follow with geoscience laboratory technician and annual exam scheduled for later this month. (7) Eczema: Code(s): L30.9 - Dermatitis, unspecified Category: Medical Plan: The patient reports her eczema is flaring with anxiety. She is running low on her topical cream. A refill for betamethasone cream will be sent to the pharmacy. Patient also benefits from daily Zyrtec for allergies, which helps her skin, and a refill will be provided. (8) Back pain: Code(s): M54.9 - Dorsalgia, unspecified Category: Medical Plan: The patient's recent increase in mid-back pain is likely related to posture, as she sits a lot for work, and her history of borderline scoliosis. Conservative management with posture correctors or KT tape was recommended to provide a physical reminder to maintain proper posture. A referral to a back specialist was offered, but the patient deferred at this time. (9) Insomnia: Code(s): G47.00 - Insomnia, unspecified Category: Medical Plan: The patient reports difficulty falling asleep, which she attributes to anxiety. The use of [id number] magnesium supplements was suggested and plan to manage anxiety with Lexapro. Plan This note was constructed using voice recognition software. While every effort has been made to ensure accuracy and mash processing operator, still areas may have been included sometimes these areas may affect the content or meeting of the given symptoms. Total time spent caring for the patient today was 20 minutes. This includes time spent before the visit reviewing the chart, time spent during the visit, and time spent after the visit and documentation. Patient was informed and verbally consented to the use of an ambient scribe for clinic note documentation during this visit. Orders: Referrals Digital Computer Systems Analyst Nutrition Referral K21.9 - Gastro-esophageal reflux disease without esophagitis Medications: New famotidine 40 mg PO DAILY 90 tabs 0RF betamethasone dipropionate 0.05% 1 appl topical DAILY PRN 45 grams 0RF skin irritation escitalopram oxalate 5 mg PO DAILY 90 tabs 0RF Discontinued famotidine Discontinued Reason: Patient no longer taking 20 mg PO DAILY 90 tabs 1RF for abdominal pain
== END 2025-04-19 10:18 | disposition home or self-care (01) ==
LOC: HO.HMCH 09:25
DX: Z00.00 Encounter for general adult medical examination without abnormal findings (principal); F32.A Depression, unspecified; F41.9 Anxiety disorder, unspecified; K21.9 Gastro-esophageal reflux disease without esophagitis; N92.6 Irregular menstruation, unspecified; Z12.4 Encounter for screening for malignant neoplasm of cervix; L30.9 Dermatitis, unspecified; M54.9 Dorsalgia, unspecified; G47.00 Insomnia, unspecified

== ENCOUNTER → 2025-04-19 09:24 | Outpatient (BNVA) | payer OTHER, SELFPAY | DX: Z00.00 Encounter for general adult medical examination without abnormal findings (principal); L30.9 Dermatitis, unspecified; F32.A Depression, unspecified; K21.9 Gastro-esophageal reflux disease without esophagitis; F41.9 Anxiety disorder, unspecified; G47.00 Insomnia, unspecified; N92.6 Irregular menstruation, unspecified | CPT/HCPCS: 99395 ==

== ENCOUNTER 2025-04-19 10:42 | Outpatient (REF) | payer OTHER, SELFPAY ==
[2025-04-19 13:12] LABS: MANUAL DIFF FLAG NO
[2025-04-19 13:19] LABS: Hematocrit 42.0 % (37.0-47.0); Hemoglobin 14.5 g/dl (12.0-16.0); Imm Gran Abs Auto 0.01 X10*3/uL (0.00-0.03); Imm Gran Pct Auto 0.1 % (0.0-0.4); Lymphocytes Absolute Auto 2.4 X10*3/uL (1.2-4.9); Mean Corpuscular HGB Conc 34.5 g/dl (31.0-35.0); Mean Corpuscular Hemoglobin 32.1 pg (27.0-33.0); Mean Corpuscular Volume 92.9 fL (80.0-98.0); NRBC Abs Auto 0.000 X10*3/uL (0.0-0.012); NRBC Pct Auto 0.0 /100WBC (0.0-0.2); Platelet Count 263 X10*3/uL (160-400); Red Blood Count 4.52 X10*6/uL (4.20-5.50); White Blood Count 8.8 X10*3/uL (4.8-10.8)
[2025-04-19 14:34] LABS: Alanine Aminotransferase 34 U/L (0-31); Albumin Level 4.7 g/dL (3.5-5.0); Alkaline Phosphatase 69 U/L (39-117); Anion Gap 14 (12-20); Aspartate Amino Transferase 29 U/L (5-31); Blood Urea Nitrogen 10 mg/dL (9-16); Calcium 9.7 mg/dL (8.4-10.2); Carbon Dioxide 21 mmol/L (22-29); Chloride 110 mmol/L (96-108); Estimated Glomerular Filt Rate > 60; Potassium 4.1 mmol/L (3.3-5.1); Sodium 141 mmol/L (135-145); Total Protein 8.1 g/dL (6.5-8.0)
[2025-04-19 14:36] LABS: Free T4 (Free Thyroxine) 0.98 ng/dL (0.71-1.85)
[2025-04-19 16:11] LABS: Folate 7.1 ng/mL (> or = 4.0); Vitamin B12 287 pg/mL (200-900)
== END 2025-04-19 10:43 | disposition home or self-care (01) ==
LOC: HO.10HDL 10:42
DX: Z00.00 Encounter for general adult medical examination without abnormal findings (principal); K21.9 Gastro-esophageal reflux disease without esophagitis; F41.9 Anxiety disorder, unspecified; Z13.21 Encounter for screening for nutritional disorder
CPT/HCPCS: 36415; 80053; 82306; 82607; 82746; 84439; 84443; 85025